=== PATIENT | female | born 1955 | race Caucasian/White ===

== ENCOUNTER 2022-04-18 18:00 | Emergency (ER) | payer MEDICARE, OTHER ==
[2022-04-18 18:48] LABS: BASOPHIL 0.4 % (0-2); HGB 14.9 g/dl (12.5-16.0); LYMPHOCYTE 12.8 % (15-48); MCH 29.2 pg (25.0-31.0); MCHC 32.4 g/dL (32.0-36.0); MONOCYTE 15.1 % (0-12); MPV 9.1 fL (6.0-9.5); NEUTROPHIL 70.2 % (41-80); NRBC 0; PLT 169 K/uL (150-400); RBC 5.11 M/uL (4.20-5.40); RDW 12.5 % (11.5-14.0); WBC 7.9 K/uL (4.0-10.5)
[2022-04-18 19:01] LABS: INR 1.04 (0.9-1.2)
[2022-04-18 19:12] LABS: ALBUMIN 3.6 g/dL (3.4-5.0); BILIRUBIN - TOTAL 0.6 mg/dL (0.2-1.0); BUN/CREAT RATIO (CALC) 23.4 RATIO; CREATININE 0.64 mg/dL (0.51-0.95); GLOBULIN (CALCULATION) 3.2 g/dL; POTASSIUM 3.8 mmol/L (3.5-5.1); TOTAL PROTEIN 6.8 g/dL (6.4-8.2)
[2022-04-18 19:21] LABS: BILIRUBIN NEGATIVE (NEGATIVE); BLOOD NEGATIVE Ery/uL (NEGATIVE); CLARITY CLEAR (CLEAR); COLOR YELLOW (YELLOW); GLUCOSE (U) 1+ mg/dL (NORMAL); LEUKOCYTES 1+ Leu/uL (NEGATIVE); NITRITE NEGATIVE (NEGATIVE); PROTEIN NEGATIVE (NEGATIVE); SPECIFIC GRAVITY 1.025 (1.001-1.030); UROBILINOGEN 0.2 mg/dL (0.2-1.0)
[2022-04-18 19:25] LABS: LACTIC ACID 1.1 mmol/L (0.4-1.9)
[2022-04-18 19:26] LABS: CORONAVIRUS 2019 SARS-COV-2 NEGATIVE (NEGATIVE); INFLUENZA A NAA NEGATIVE (NEGATIVE)
[2022-04-18 19:36] LABS: AMORPHOUS URATES CRYSTALS MODERATE; BACTERIA 2+; MUCOUS TRACE
[2022-04-18] MEDS ORDERED: BACTRIM DS TAB1 EACH PO (21:07)
== END 2022-04-18 22:11 | disposition home or self-care (01) ==
LOC: FER 18:00
PROVIDERS: Nurse Practitioner Family
DX: N39.0 Urinary tract infection, site not specified (principal); R52 Pain, unspecified; E11.9 Type 2 diabetes mellitus without complications; Z88.6 Allergy status to analgesic agent; Z20.822 Contact with and (suspected) exposure to COVID-19; W19.XXXA Unspecified fall, initial encounter
CPT/HCPCS: 36415; 70450; 71045; 80053; 81001; 83605; 84145; 84484; 85025; 85610; 85730; 87040; 87088; J0696; J1885; J7030; U0002

== ENCOUNTER 2022-05-30 22:08 | Emergency (ER) | payer MEDICARE, OTHER ==
[~2022-05-30 22:08] MED LIST: BACTRIM DS TAB1 EACH PO
[2022-05-30 22:53] LABS: BASOPHIL 0.3 % (0-2); EOSINOPHIL 1.5 % (0-7); HCT 43.2 % (37.0-47.0); LYMPHOCYTE 18.9 % (15-48); MCH 29.2 pg (25.0-31.0); MCHC 32.4 g/dL (32.0-36.0); MCV 90.2 fL (78.0-100.0); MONOCYTE 9.6 % (0-12); MPV 9.4 fL (6.0-9.5); NEUTROPHIL 69.3 % (41-80); NRBC 0; PLT 215 K/uL (150-400); RBC 4.79 M/uL (4.20-5.40); RDW 12.6 % (11.5-14.0)
[2022-05-30 23:13] LABS: ALBUMIN 3.6 g/dL (3.4-5.0); BILIRUBIN - TOTAL 0.6 mg/dL (0.2-1.0); BUN/CREAT RATIO (CALC) 22.2 RATIO; CREATININE 0.63 mg/dL (0.51-0.95); TOTAL PROTEIN 6.6 g/dL (6.4-8.2)
[2022-05-30 23:24] LABS: LACTIC ACID 1.2 mmol/L (0.4-1.9)
[2022-05-31 00:04] LABS: CORONAVIRUS 2019 SARS-COV-2 NEGATIVE (NEGATIVE); INFLUENZA A NAA NEGATIVE (NEGATIVE)
[2022-05-31 01:22] LABS: BILIRUBIN NEGATIVE (NEGATIVE); BLOOD NEGATIVE Ery/uL (NEGATIVE); CLARITY CLEAR (CLEAR); COLOR YELLOW (YELLOW); GLUCOSE (U) NORMAL (NORMAL); LEUKOCYTES NEGATIVE Leu/uL (NEGATIVE); NITRITE NEGATIVE (NEGATIVE); PROTEIN NEGATIVE (NEGATIVE); SPECIFIC GRAVITY <=1.005 (1.001-1.030); UROBILINOGEN 0.2 mg/dL (0.2-1.0)
[2022-05-31 01:30] LABS: BACTERIA TRACE; URINARY WBC RARE
[2022-05-31] MEDS ORDERED: AMOX TR-K CLV1 EAC4 PO (01:51)
== END 2022-05-31 02:53 | disposition home or self-care (01) ==
LOC: FER 22:08
PROVIDERS: Emergency Medicine
DX: N75.1 Abscess of Bartholin's gland (principal); E11.9 Type 2 diabetes mellitus without complications; Z20.822 Contact with and (suspected) exposure to COVID-19; Z88.6 Allergy status to analgesic agent
CPT/HCPCS: 36415; 80053; 81001; 83605; 84145; 85025; 87040; 96365; 96375; J1170; J2543; J7030; U0002